=== PATIENT | female | born 1970 | race Caucasian/White ===

== ENCOUNTER → 2017-03-31 | Outpatient (CLI) | payer OTHER | LOC: CIMAGING 08:41 | PROVIDERS: ATTEND Family Medicine | DX: Z12.31 Encounter for screening mammogram for malignant neoplasm of breast (principal) | CPT/HCPCS: G0202 ==

== ENCOUNTER → 2018-07-28 | Outpatient (CLI) | payer OTHER | LOC: EMCIMAGING 18:20 | PROVIDERS: ATTEND Nurse Practitioner Acute Care | DX: M25.561 Pain in right knee (principal) | CPT/HCPCS: 73562-PN ==

== ENCOUNTER → 2018-10-09 | Outpatient (CLI) | payer OTHER | LOC: BMCIMAGING 14:04 | PROVIDERS: ATTEND Family Medicine | DX: M79.604 Pain in right leg (principal); M77.31 Calcaneal spur, right foot ==